=== PATIENT | male | born 1985 | race American Indian/Alaskan Native ===

== ENCOUNTER 2020-10-29 15:00 | Emergency (ER) | payer MEDICAID ==
--- NOTE | 2020-10-29 15:31 | Emergency Department Report ---
ED General Adult HPI - General Chief complaint: Dizziness Stated complaint: DIZZY Time Seen by Provider: 10/29/20 15:06 Source: patient Mode of arrival: Ambulatory Limitations: No Limitations - History of Present Illness Initial comments: Patient is a 34-year-old male presents emergency room with complaints of lightheadedness that began this morning around 7 AM. He has associated generalized body aches, his weakness, mild shortness of breath, occasional dry cough. He denies any fever, headache, numbness, unilateral weakness, chest pain, leg swelling, vomiting, diarrhea. 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 No past medical history. He has an allergy to Dimetapp. ED Review of Systems ROS: Stated complaint: DIZZY Other details as noted in HPI Comment: All other systems reviewed and negative ED Past Medical Hx - Past Medical History Previous Medical History?: No - Surgical History Past Surgical History?: Yes ED Physical Exam - General Limitations: No Limitations General appearance: alert, in no apparent distress - Head Head exam: Present: atraumatic, normocephalic - Eye Eye exam: Present: normal appearance, PERRL, EOMI. Absent: scleral icterus, conjunctival injection, nystagmus, periorbital swelling, periorbital tenderness Pupils: Present: normal accommodation - ENT ENT exam: Present: mucous membranes moist - Respiratory Respiratory exam: Present: normal lung sounds bilaterally. Absent: respiratory distress, wheezes, rales, rhonchi, stridor, chest wall tenderness, accessory muscle use, decreased breath sounds, prolonged expiratory - Cardiovascular Cardiovascular Exam: Present: regular rate, normal rhythm, normal heart sounds. Absent: systolic murmur, diastolic murmur, rubs, gallop - Neurological Exam Neurological exam: Present: alert, oriented X3, CN II-XII intact, normal gait. Absent: motor sensory deficit - Psychiatric Psychiatric exam: Present: normal affect, normal mood - Skin Skin exam: Present: warm, dry, intact ED Course Vital Signs 10/29/20 10/29/20 15:04 17:02 Temperature 98.3 F Pulse Rate 87 67 Respiratory 18 Rate Blood Pressure 128/67 150/71 [Right] O2 Sat by Pulse 96 98 Oximetry ED Medical Decision Making - Lab Data Result diagrams: 10/29/20 15:34 10/29/20 15:34 Labs 10/29/20 10/29/20 15:34 15:34 WBC 2.5 L RBC 4.68 Hgb 14.6 Hct 43.1 MCV 92 MCH 31 MCHC 34 RDW 14.7 Plt Count 218 [place] % (Auto) Gore Inserter Add Manual Diff Complete Total Counted 100 Seg Neuts % (Manual) 42.0 Lymphocytes % (Manual) 34.0 Monocytes % (Manual) 24.0 H Nucleated RBC % Not Reportable Seg Neutrophils # Man 1.1 L Band Neutrophils # 0.0 Lymphocytes # (Manual) 0.9 L Abs React Lymphs (Man) 0.0 Monocytes # (Manual) 0.6 Eosinophils # (Manual) 0.0 Basophils # (Manual) 0.0 Metamyelocytes # 0.0 Myelocytes # 0.0 Promyelocytes # 0.0 Blast Cells # 0.0 WBC Morphology Not Reportable Hypersegmented Neuts Not Reportable Hyposegmented Neuts Not Reportable Hypogranular Neuts Not Reportable Smudge Cells Not Reportable Toxic Granulation Not Reportable Toxic Vacuolation Not Reportable Dohle Bodies Not Reportable Pelger-Huet Anomaly Not Reportable Deon Rods Not Reportable Platelet Estimate Not Reportable Clumped Platelets Not Reportable Plt Clumps, EDTA Not Reportable Large Platelets Not Reportable Giant Platelets Not Reportable Platelet Satelliting Not Reportable Plt Morphology Comment Not Reportable RBC Morphology Normal Dimorphic RBCs Not Reportable Polychromasia Not Reportable Hypochromasia Not Reportable Poikilocytosis Not Reportable Anisocytosis Not Reportable Microcytosis Not Reportable Macrocytosis Not Reportable Spherocytes Not Reportable Pappenheimer Bodies Not Reportable Sickle Cells Not Reportable Target Cells Not Reportable Tear Drop Cells Not Reportable Ovalocytes Not Reportable Helmet Cells Not Reportable [place] Bodies Not Reportable Ripley Rings Not Reportable [place] Cells Not Reportable Bite Cells Not Reportable Crenated Cell Not Reportable Elliptocytes Not Reportable Acanthocytes (Spur) Not Reportable Rouleaux Not Reportable Hemoglobin C Crystals Not Reportable Schistocytes Not Reportable Malaria parasites Not Reportable Nasir Bodies Not Reportable Hem Pathologist Commnt No Sodium 140 Potassium 4.1 Chloride 104.0 Carbon Dioxide 27 Anion Gap 13 BUN 14 Creatinine 1.2 Estimated GFR > 60 BUN/Creatinine Ratio 12 Glucose 83 Calcium 8.9 Total Bilirubin 0.30 AST 30 ALT 22 Alkaline Phosphatase 94 Total Protein 7.5 Albumin 4.3 Albumin/Globulin Ratio 1.3 - EKG Data EKG shows normal: sinus rhythm, axis, intervals, QRS complexes, ST-T waves Rate: normal - Radiology Data Radiology results: report reviewed Ordering Physician: JEAN-CLAUDE MAK Date of Service: 10/29/20 Procedure(s): XR chest routine 2V Accession Number(s): [id number] cc: JEAN-CLAUDE MAK Fluoro Time In Minutes: CHEST 2 VIEWS INDICATION: sob, URI symptoms. COMPARISON: None FINDINGS: SUPPORT DEVICES: None. HEART: Within normal limits. LUNGS/PLEURA: No acute air space or interstitial disease. No pneumothorax. ADDITIONAL FINDINGS: Scoliotic curvature of the spine noted. IMPRESSION: 1. No acute findings. Signer Name: Michael Barrientos MD Signed: 10/29/2020 3:37 PM Workstation Name: [email or web address] Transcribed By: Dictated By: Michael Barrientos MD Electronically Authenticated By: Michael Barrientos MD Signed Date/Time: 10/29/20 1537 DD/ 33 TD/TT: Print - Medical Decision Making Patient is a 34-year-old male presents emergency room with complaints of lightheadedness that began this morning around 7 AM. He has associated generalized body aches, his weakness, mild shortness of breath, occasional dry cough. He denies any fever, headache, numbness, unilateral weakness, chest pain, leg swelling, vomiting, diarrhea. 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 No past medical history. He has an allergy to Dimetapp. Vitals are normal. EKG is within normal limits. Labs are stable. Chest x-ray 1. No acute findings. Symptoms likely related to viral URI, patient is presenting with the symptoms during COVID-19 pandemic, discussed COVID-19 with patient, discussed return precautions, discussed outpatient testing, discussed self quarantine. Advised patient Please increase your fluid intake over the next several days. May take Tylenol as needed for fever or body aches. May take daph-xnj-zkwnmim cold symp arvin relief medication such as Mucinex or TheraFlu. Follow-up with a primary care doctor for reexamination. Return to emergency room immediately for any new or worsening symptoms including but not limited to difficulty breathing, shortness of breath, severe chest pain, unable to tolerate by mouth intake, etc. Please self quarantine for 10 days from the onset of your symptoms. Please do not go out in public. If you are around others at home please wear a mask. If you need to cough or sneeze please do so in a napkin and immediately throw it away and immediately wash your hands. Wash your hands frequently. Wipe everything down. Recommend for you to get COVID-19 testing, may have this done at primary care doctor, health department, [facility], etc. Critical care attestation.: If time is entered above; I have spent that time in minutes in the direct care of this critically ill patient, excluding procedure time. ED Disposition Clinical Impression: Viral illness, Lightheadedness Disposition: DC-01 TO HOME OR SELFCARE Is pt being admited?: No Does the pt Need Aspirin: No Condition: Stable Instructions: Viral Illness, Adult Additional Instructions: Please increase your fluid intake over the next several days. May take Tylenol as needed for fever or body aches. May take oyuq-ulk-[id number] cold symptom relief medication such as Mucinex or TheraFlu. Follow-up with a primary care doctor for reexamination. Return to emergency room immediately for any new or worsening symptoms including but not limited to difficulty breathing, shortness of breath, severe chest pain, unable to tolerate by mouth intake, etc. Please self quarantine for 10 days from the onset of your symptoms. Please do not go out in public. If you are around others at home please wear a mask. If you need to cough or sneeze please do so in a napkin and immediately throw it away and immediately wash your hands. Wash your hands frequently. Wipe everything down. Recommend for you to get COVID-19 testing, may have this done at primary care doctor, health department, [facility], etc. Referrals: LONG LYLE MD [Primary Care Provider] - 2-3 Days TRUPTI LOVE MD [Staff Physician] - 2-3 Days [facility] [Provider Group] - 2-3 Days Forms: Work/School Release Form(ED) Time of Disposition: 16:51 Print Language: ZAMBIAN
--- NOTE | 2020-10-29 15:41 | XRay Report ---
CHEST 2 VIEWS INDICATION: sob, URI symptoms. COMPARISON: None FINDINGS: SUPPORT DEVICES: None. HEART: Within normal limits. LUNGS/PLEURA: No acute air space or interstitial disease. No pneumothorax. ADDITIONAL FINDINGS: Scoliotic curvature of the spine noted. IMPRESSION: 1. No acute findings. Signer Name: Michael Barrientos MD Signed: 10/29/2020 3:37 PM Workstation Name: [id number]
[2020-10-29 15:42] LABS: Hematocrit 43.1 % (35.5-45.6); Hemoglobin 14.6 gm/dl (11.8-15.2); Mean Corpuscular HGB Conc 34 % (32-34); Mean Corpuscular Volume 92 fl (84-94); Platelet Count 218 K/mm3 (140-440); Red Blood Count 4.68 M/mm3 (3.65-5.03); Red Cell Distribution Width 14.7 % (13.2-15.2)
[2020-10-29 16:34] LABS: Total Cells Counted 100
[2020-10-29 16:35] LABS: RBC Morphology Normal
[2020-10-29 16:46] LABS: Alanine Aminotransferase 22 units/L (7-56); Albumin 4.3 g/dL (3.9-5); BUN/Creatinine Ratio 12; Blood Urea Nitrogen 14 mg/dL (9-20); Calcium 8.9 mg/dL (8.4-10.2); Hemolysis Index 22
[2020-10-29 17:04] VITALS: BP 150/71
== END 2020-10-29 17:04 | disposition home or self-care (01) ==
LOC: ED 15:00
DX: B34.9 Viral infection, unspecified (principal); R42 Dizziness and giddiness; Z98.890 Other specified postprocedural states
CPT/HCPCS: 36415; 71046; 80053; 85007; 85025; 93005